=== PATIENT | female | born 1930 | race Caucasian/White ===

== ENCOUNTER → 2016-10-05 | Outpatient (CLI) | payer OTHER | LOC: HYPER 06:52 | DX: S01.00XA Unspecified open wound of scalp, initial encounter (principal); L57.0 Actinic keratosis; L85.3 Xerosis cutis; D48.5 Neoplasm of uncertain behavior of skin; L01.00 Impetigo, unspecified; M19.90 Unspecified osteoarthritis, unspecified site; H40.9 Unspecified glaucoma; I10 Essential (primary) hypertension; F32.9 Major depressive disorder, single episode, unspecified; Z85.3 Personal history of malignant neoplasm of breast; X58.XXXA Exposure to other specified factors, initial encounter; Y93.89 Activity, other specified; Y92.89 Other specified places as the place of occurrence of the external cause; Y99.8 Other external cause status ==

== ENCOUNTER → 2016-10-19 | Outpatient (CLI) | payer OTHER | LOC: HYPER 07:37 | DX: S01.00XD Unspecified open wound of scalp, subsequent encounter (principal); L57.0 Actinic keratosis; L85.3 Xerosis cutis; Z85.828 Personal history of other malignant neoplasm of skin; L01.00 Impetigo, unspecified; M19.90 Unspecified osteoarthritis, unspecified site; F32.9 Major depressive disorder, single episode, unspecified; I10 Essential (primary) hypertension; X58.XXXD Exposure to other specified factors, subsequent encounter ==

== ENCOUNTER → 2016-11-04 | Outpatient (CLI) | payer OTHER | LOC: HYPER 06:59 | DX: S01.00XD Unspecified open wound of scalp, subsequent encounter (principal); L57.0 Actinic keratosis; L85.3 Xerosis cutis; L01.00 Impetigo, unspecified; M19.90 Unspecified osteoarthritis, unspecified site; F32.9 Major depressive disorder, single episode, unspecified; I10 Essential (primary) hypertension; Z85.828 Personal history of other malignant neoplasm of skin; Z85.3 Personal history of malignant neoplasm of breast; X58.XXXD Exposure to other specified factors, subsequent encounter ==

== ENCOUNTER → 2016-11-16 | Outpatient (CLI) | payer OTHER | LOC: HYPER 07:06 | DX: S01.00XD Unspecified open wound of scalp, subsequent encounter (principal); R21 Rash and other nonspecific skin eruption; L57.0 Actinic keratosis; L85.3 Xerosis cutis; L01.00 Impetigo, unspecified; M19.90 Unspecified osteoarthritis, unspecified site; F32.9 Major depressive disorder, single episode, unspecified; I10 Essential (primary) hypertension; D48.5 Neoplasm of uncertain behavior of skin; Z85.3 Personal history of malignant neoplasm of breast; X58.XXXD Exposure to other specified factors, subsequent encounter ==

== ENCOUNTER → 2017-02-01 | Outpatient (CLI) | payer OTHER | LOC: HYPER 06:49 | DX: S01.00XD Unspecified open wound of scalp, subsequent encounter (principal); L57.0 Actinic keratosis; L85.3 Xerosis cutis; D48.5 Neoplasm of uncertain behavior of skin; L01.00 Impetigo, unspecified; M19.90 Unspecified osteoarthritis, unspecified site; F32.9 Major depressive disorder, single episode, unspecified; Z85.3 Personal history of malignant neoplasm of breast; I10 Essential (primary) hypertension; X58.XXXD Exposure to other specified factors, subsequent encounter ==

== ENCOUNTER → 2017-02-08 | Outpatient (CLI) | payer OTHER | LOC: HYPER 06:56 | DX: S01.00XD Unspecified open wound of scalp, subsequent encounter (principal); L57.0 Actinic keratosis; L85.3 Xerosis cutis; D48.5 Neoplasm of uncertain behavior of skin; L01.00 Impetigo, unspecified; M19.90 Unspecified osteoarthritis, unspecified site; Z85.3 Personal history of malignant neoplasm of breast; F32.9 Major depressive disorder, single episode, unspecified; I10 Essential (primary) hypertension; X58.XXXD Exposure to other specified factors, subsequent encounter ==

== ENCOUNTER → 2017-02-22 | Outpatient (CLI) | payer OTHER | LOC: HYPER 07:05 | DX: S01.00XD Unspecified open wound of scalp, subsequent encounter (principal); L57.0 Actinic keratosis; L85.3 Xerosis cutis; L01.00 Impetigo, unspecified; D48.5 Neoplasm of uncertain behavior of skin; M19.90 Unspecified osteoarthritis, unspecified site; F32.9 Major depressive disorder, single episode, unspecified; Z85.3 Personal history of malignant neoplasm of breast; X58.XXXD Exposure to other specified factors, subsequent encounter ==

== ENCOUNTER → 2017-06-14 | Outpatient (CLI) | payer OTHER | LOC: HYPER 06:42 | DX: S01.00XA Unspecified open wound of scalp, initial encounter (principal); L57.0 Actinic keratosis; L85.3 Xerosis cutis; I10 Essential (primary) hypertension; M19.90 Unspecified osteoarthritis, unspecified site; F32.9 Major depressive disorder, single episode, unspecified; Z85.3 Personal history of malignant neoplasm of breast; X58.XXXA Exposure to other specified factors, initial encounter; Y93.89 Activity, other specified; Y92.89 Other specified places as the place of occurrence of the external cause; Y99.8 Other external cause status ==